=== PATIENT | female | born 2000 | race Caucasian/White ===

== ENCOUNTER 2021-08-18 11:19 | Outpatient (CLI) | payer OTHER, BC ==
[2021-08-18 13:22] LABS: BHCG - Serum Negative (NEGATIVE); Pregs Control Background? CLEAR/WHITE (CLR/WHITE); Pregs Control Bar Appear? YES (CONTROL BAR)
[2021-08-19 00:23] LABS: SARS-CoV-2 PCR by NAA Not Detected (NotDetected)
== END 2021-08-18 11:20 | disposition home or self-care (01) ==
LOC: LABBT 11:19
PROVIDERS: ATTEND Orthopaedic Surgery
DX: Z01.812 Encounter for preprocedural laboratory examination (principal); S82.891A Other fracture of right lower leg, initial encounter for closed fracture; Z20.822 Contact with and (suspected) exposure to COVID-19
CPT/HCPCS: 84703; U0003; U0005

== ENCOUNTER 2021-08-19 10:33 | Day surgery (SDC) | payer BC, OTHER, SELFPAY ==
[2021-08-18 12:11] VITALS: BMI 49.9
[2021-08-19] MEDS ORDERED: ceFAZolin (BATCH) 2 GM/100 ML BAG ONE (11:52)
[2021-08-19] MEDS ORDERED: Fentanyl 100 MCG/2 ML VIAL ONE ×4 (11:57→14:26)
[2021-08-19] MEDS ORDERED: Midazolam HCl 2 mg/2 ml Vial ONE ×2 (11:57→12:22)
[2021-08-19] MEDS ORDERED: Scopolamine 1.5 mg/72 hour Patch ONE (12:06)
[2021-08-19] MEDS ORDERED: Neomycin-Polymyxin 1 ML AMP ONE (12:37)
[2021-08-19] MEDS ORDERED: Ketamine 50 MG/ML (10ML VIAL) ONE (12:58)
[2021-08-19] MEDS ORDERED: Famotidine/PF 20 mg/2ml Vial ONE (12:58)
[2021-08-19] MEDS ORDERED: Lidocaine 1% PF 5 ML VIAL ONE (13:00)
[2021-08-19] MEDS ORDERED: Dexamethasone 20 MG/5 ML VIAL ONE (13:00)
[2021-08-19] MEDS ORDERED: Ondansetron PF 4 MG/2 ML Vial ONE (13:00)
[2021-08-19] MEDS ORDERED: Ropivacaine 0.5% HCl/PF (150 MG/30 ML VIAL) ONE (13:00)
[2021-08-19] MEDS ORDERED: PROPOFOL 200 MG/20 ML VIAL ONE (13:00)
[2021-08-19] MEDS ORDERED: Metoclopramide HCl 10 MG/2 ML VIAL ONE (13:00)
== END 2021-08-19 15:40 | disposition home or self-care (01) ==
LOC: SDC 10:33
PROVIDERS: ATTEND Orthopaedic Surgery
PROC: 0QSJ04Z Reposition Right Fibula with Internal Fixation Device, Open Approach (ICD-10-PCS; principal; 2021-08-19)
PROC: 3E0T3BZ Introduction of Anesthetic Agent into Peripheral Nerves and Plexi, Percutaneous Approach (ICD-10-PCS; principal; 2021-08-19)
DX: S82.61XA Displaced fracture of lateral malleolus of right fibula, initial encounter for closed fracture (principal); Z79.2 Long term (current) use of antibiotics; Z91.040 Latex allergy status; W10.9XXA Fall (on) (from) unspecified stairs and steps, initial encounter
CPT/HCPCS: 76000; C1713; J0690; J1100; J2250; J2405; J2704; J2765; J2795; J3010; S0028

== ENCOUNTER 2022-02-23 12:34 | Outpatient (CLI) | payer BC, OTHER ==
[2022-02-23 15:24] LABS: BHCG - Serum Negative (NEGATIVE); Pregs Control Background? CLEAR/WHITE (CLR/WHITE); Pregs Control Bar Appear? YES (CONTROL BAR)
== END 2022-02-23 12:35 | disposition home or self-care (01) ==
LOC: LABBT 12:34
PROVIDERS: ATTEND Orthopaedic Surgery
DX: Z01.812 Encounter for preprocedural laboratory examination (principal); T85.848A Pain due to other internal prosthetic devices, implants and grafts, initial encounter; Z20.822 Contact with and (suspected) exposure to COVID-19
CPT/HCPCS: 84703; 87811

== ENCOUNTER 2022-02-26 06:01 | Day surgery (SDC) | payer BC ==
[2022-02-24 14:28] VITALS: BMI 49.9
[2022-02-26] MEDS ORDERED: Scopolamine 1.5 mg/72 hour Patch ONE (07:09)
[2022-02-26] MEDS ORDERED: Midazolam HCl 2 mg/2 ml Vial ONE (07:09)
[2022-02-26] MEDS ORDERED: HYDROmorphone 0.5 MG/0.5 ML SYRINGE ONE (07:16)
[2022-02-26] MEDS ORDERED: Promethazine HCl 25 MG/ML VIAL ONE (07:16)
[2022-02-26] MEDS ORDERED: CEFAZOLIN 2 GM VIAL ONE (07:25)
[2022-02-26] MEDS ORDERED: Sodium Chloride 0.9% 100 ML ONE (07:25)
[2022-02-26] MEDS ORDERED: PROPOFOL 200 MG/20 ML VIAL ONE (07:43)
[2022-02-26] MEDS ORDERED: Ondansetron PF 4 MG/2 ML Vial ONE (07:43)
[2022-02-26] MEDS ORDERED: Dexamethasone 20 MG/5 ML VIAL ONE (07:43)
[2022-02-26] MEDS ORDERED: Ketorolac Tromethamine 30 MG/ML VIAL ONE (07:43)
[2022-02-26] MEDS ORDERED: Meperidine HCl/PF 25 MG/ML VIAL ONE (08:45)
[2022-02-26] MEDS ORDERED: Fentanyl 100 MCG/2 ML VIAL ONE (09:02)
[2022-02-26] MEDS ORDERED: HYDROcodone/Acetaminophen 5/325 mg Tablet ONE (10:31)
== END 2022-02-26 10:48 | disposition home or self-care (01) ==
LOC: SDC 06:01
PROVIDERS: ATTEND Orthopaedic Surgery
PROC: 0SPF04Z Removal of Internal Fixation Device from Right Ankle Joint, Open Approach (ICD-10-PCS; principal; 2022-02-26)
DX: T84.84XA Pain due to internal orthopedic prosthetic devices, implants and grafts, initial encounter (principal); Z91.040 Latex allergy status; Y79.3 Surgical instruments, materials and orthopedic devices (including sutures) associated with adverse incidents
CPT/HCPCS: 76000; J0690; J1100; J1170; J1885; J2175; J2250; J2405; J2550; J2704; J3010; J3490